=== PATIENT | female | born 1990 | race Caucasian/White ===

== ENCOUNTER 2019-10-17 14:48 | Inpatient (IN) | payer OTHER ==
[~2019-10-17] VITALS: Ht 165.1 cm; Wt 77.1 kg
[2019-10-17] MEDS ORDERED: PROMETHAZINE 25 MG/ML VIAL IVP PRN (15:45)
[2019-10-17] MEDS ORDERED: LACTATED RINGERS 1,000 ML IV SCH (15:45)
[2019-10-17] MEDS ORDERED: OXYTOCIN 20 UNITS in LACTATED RINGERS 1,000 ML IV SCH (15:45)
[2019-10-17] MEDS ORDERED: NALBUPHINE 10 MG/ML AMP IVP PRN (15:45)
[2019-10-17] MEDS ORDERED: AMPICILLIN 2,000 MG in NACL 0.9% 100 ML IV SCH (15:50)
[2019-10-17 16:27] LABS: BASOPHILS % (AUTO) 0.2 % (0.0-2.0); EOSINOPHILS % (AUTO) 0.4 % (0.0-4.0); HEMATOCRIT 40.1 % (36-48); HEMOGLOBIN 13.6 g/dL (12.0-16.0); LYMPHOCYTES # (AUTO) 0.9 K/uL (2.5-16.5); LYMPHOCYTES % (AUTO) 14.3 % (20.5-51.1); MEAN CORPUSCULAR HEMOGLOBIN 32 pg (27-31); MEAN CORPUSCULAR HGB CONC 34 g/dL (33-37); MEAN CORPUSCULAR VOLUME 95.5 fL (80-94); MONOCYTES # (AUTO) 0.5 K/uL (0.8-1.0); MONOCYTES % (AUTO) 7.4 % (1.7-9.3); NEUTROPHILS # (AUTO) 5.2 K/uL (1.8-7.7); NEUTROPHILS % (AUTO) 77.7 % (42.2-75.2); PLATELET COUNT (AUTO) 194 K/uL (140-450); RED CELL DISTRIBUTION WIDTH 12.3 % (11.6-13.7); WHITE BLOOD COUNT (AUTO) 6.6 K/uL (4.8-10.8)
[2019-10-17] MEDS ORDERED: AMPICILLIN 2,000 MG VIAL ONE (16:40)
[2019-10-17 16:59] LABS: ALBUMIN 2.7 g/dL (3.4-5.0); ANION GAP 16.4 (8-16); CARBON DIOXIDE 20.2 mmol/L (21-32); CREATININE 0.6 mg/dL (0.6-1.3); POTASSIUM 3.6 mmol/L (3.5-5.1); TOTAL BILIRUBIN 0.3 mg/dL (0.0-1.0)
[2019-10-17 17:23] VITALS: BP 141/85
[2019-10-17 17:24] LABS: APPEARANCE,URINE CLEAR (CLEAR); BILIRUBIN,URINE NEGATIVE (NEGATIVE); BLOOD, URINE NEGATIVE (NEGATIVE); COLOR,URINE YELLOW (YELLOW); LEUKOCYTE ESTERASE ,URINE TRACE (NEGATIVE); NITRITE, URINE NEGATIVE (NEGATIVE); UGLUCOSE NEGATIVE (NEGATIVE)
[2019-10-17 17:50] LABS: RBC,URINE NONE SEEN /HPF (0-5); WBC,URINE 0-5 /HPF (0-5)
[2019-10-17] MEDS ORDERED: AMPICILLIN 1,000 MG VIAL ONE ×2 (18:09→20:59)
[2019-10-17] MEDS: AMPICILLIN 1,000 MG in NACL 0.9% 50 ML IV SCH ×2 (18:15→21:00)
[2019-10-17] MEDS ORDERED: PREN-380 PO (19:48)
[2019-10-17] MEDS ORDERED: MISOPROSTOL 25 MCG TAB VG SCH (20:00)
[2019-10-17] MEDS ORDERED: MISOPROSTOL 25 MCG TAB ONE (20:09)
[2019-10-18] MEDS ORDERED: OXYTOCIN 20 UNITS/LR PREMIX 1,000 ML IV ONE (00:24)
[2019-10-18] MEDS ORDERED: AMPICILLIN 1,000 MG VIAL ONE (00:24)
[2019-10-18] MEDS: AMPICILLIN 1,000 MG in NACL 0.9% 50 ML IV SCH (01:03)
[2019-10-18] MEDS ORDERED: fentaNYL 0.05 MG/ML VIAL IVP SCH (01:40)
[2019-10-18] MEDS ORDERED: PROMETHAZINE 25 MG/ML VIAL IVP PRN (01:40)
[2019-10-18] MEDS ORDERED: fentaNYL 0.05 MG/ML VIAL ONE (01:42)
[2019-10-18] MEDS ORDERED: PROMETHAZINE 25 MG/ML VIAL ONE (01:42)
[2019-10-18] MEDS ORDERED: LIDOCAINE 1% 500 MG/50 ML VIAL ONE (03:53)
[2019-10-18] MEDS ORDERED: METHYLERGONOVINE 0.2 MG/ML AMP ONE (04:33)
[2019-10-18] MEDS ORDERED: METHYLERGONOVINE 0.2 MG/ML AMP IM PRN (04:50)
[2019-10-18] MEDS ORDERED: TEMAZEPAM 15 MG CAP PO PRN (04:50)
[2019-10-18] MEDS ORDERED: BENZOCAINE/MENTHOL 20%-0.5% 60 GM CAN TP PRN (04:50)
[2019-10-18] MEDS ORDERED: IBUPROFEN 800 MG TAB PO PRN (04:50)
[2019-10-18] MEDS ORDERED: oxyCODONE/APAP 5/325 MG 1 TAB TAB PO PRN (04:50)
[2019-10-18] MEDS ORDERED: BISACODYL 10 MG SUPP RC PRN (04:50)
[2019-10-18] MEDS ORDERED: HYDROcodone/APAP 5/325 MG 1 TAB TAB PO PRN (04:50)
[2019-10-18] MEDS ORDERED: METHYLERGONOVINE 0.2 MG TAB PO PRN (04:50)
[2019-10-18] MEDS ORDERED: MEASLES, MUMPS, AND RUBELLA 1 VIAL SQVAC PRN (04:50)
[2019-10-18] MEDS ORDERED: OXYTOCIN 10 UNITS/ML VIAL IM PRN (04:50)
--- NOTE | 2019-10-18 08:25 | NUR ---
PATIENT HAS BEEN SCREENED AND CATEGORIZED LOW NUTRITION RISK. PATIENT WILL BE SEEN WITHIN 7 DAYS OF ADMISSION. 10/24/[address]
[2019-10-18] MEDS ORDERED: DOCUSATE SOD/SENNA 50/8.6 MG 1 TAB PO SCH (21:00)
[2019-10-19 06:14] LABS: HEMATOCRIT 25.8 % (36-48); HEMOGLOBIN 8.8 g/dL (12.0-16.0)
== END 2019-10-19 13:45 | disposition home or self-care (01) | DRG 560 ==
LOC: MLD 14:48 → OBSVTOIN 15:50 → MFCC 10-18 07:05
PROVIDERS: ADMIT Obstetrics & Gynecology; ATTEND Obstetrics & Gynecology
PROC: 10D07Z6 Extraction of Products of Conception, Vacuum, Via Natural or Artificial Opening (ICD-10-PCS; principal; 2019-10-18)
PROC: 3E0P7VZ Introduction of Hormone into Female Reproductive, Via Natural or Artificial Opening (ICD-10-PCS; 2019-10-18)
PROC: 0W8NXZZ Division of Female Perineum, External Approach (ICD-10-PCS; 2019-10-18)
DX: O42.92 Full-term premature rupture of membranes, unspecified as to length of time between rupture and onset of labor (principal); D62 Acute posthemorrhagic anemia; O69.1XX0 Labor and delivery complicated by cord around neck, with compression, not applicable or unspecified; Z37.0 Single live birth; Z3A.38 38 weeks gestation of pregnancy
CPT/HCPCS: 36415; 59200; 80053; 81001; 85018; 85025; 86592; 86886; 86900; 86901; G0378; J0290; J2001; J2210; J2550; J2590; J3010; J7120